=== PATIENT | female | born 1955 ===

== ENCOUNTER 2021-12-28 10:33 | Observation (INO) ==
[2021-12-22] MEDS: HYDROmorphone 1 MG/1 ML SYRINGE IV PRN (16:58)
[~2021-12-28 10:33] MED LIST: Buffered Lidocaine 1% SYRIN 1 ml INTRADERM ONE; Famotidine IV 10 MG/ML 2 ml VIAL (20 mg) IV ONE; Lactated Ringers 1000 ml BAG 1,000 ML IV SCH
[2021-12-28] MEDS ORDERED: Famotidine IV 10 MG/ML 2 ml VIAL (20 mg) ONE (11:16)
[2021-12-28] MEDS ORDERED: ceFAZolin 2 GM in NS PREMIX 2 GM/100 ML BAG IVPB ONE (11:16)
[2021-12-28] MEDS ORDERED: Lidocaine 2% PF 5 ML VIAL ONE ×2 (12:35→13:09)
[2021-12-28] MEDS ORDERED: fentaNYL 100 mcg/2 ml 50 MCG/ML VIAL ONE (12:35)
[2021-12-28] MEDS ORDERED: Midazolam 10 mg/10 ml VIAL 1 mg/ml 10 ml VIAL (10 mg) ONE (12:35)
[2021-12-28] MEDS ORDERED: ROPIVACAINE 5 MG/ML 30 ML BTL (0.5%) ONE (12:37)
[2021-12-28] MEDS ORDERED: Rocuronium 50 mg VIAL 10 mg/ml 5 ml VIAL (50 mg) ONE (13:07)
[2021-12-28] MEDS ORDERED: fentaNYL 250 mcg/5 ml 50 MCG/ML 5 ml VIAL (250 MCG) ONE ×2 (13:08→16:50)
[2021-12-28] MEDS ORDERED: ceFAZolin VIAL VIAL ONE (13:34)
[2021-12-28] MEDS ORDERED: ceFAZolin 1 GM ADVAN 1 GM ADDV.VIAL IVPB ONE (13:35)
[2021-12-28] MEDS ORDERED: Dexamethasone IV 4 MG/ML VIAL 1 ml VIAL ONE (13:39)
[2021-12-28] MEDS ORDERED: Ondansetron 4 mg VIAL 2 MG/ML 2 ml VIAL ONE (13:39)
[2021-12-28] MEDS ORDERED: Ropivacaine 5 MG/ML 20 ML VIAL 0.5% (100 MG) ONE (13:40)
[2021-12-28] MEDS ORDERED: Naloxone 0.4 mg VIAL 0.4 mg/ml 1 ml VIAL IV PRN (13:50)
[2021-12-28] MEDS ORDERED: Ondansetron 4 mg VIAL 2 MG/ML 2 ml VIAL IV PRN ×2 (13:50→15:09)
[2021-12-28] MEDS ORDERED: Propofol 10 MG/ML 20 ML BTL ONE ×2 (14:16→17:00)
[2021-12-28] MEDS ORDERED: HYDROmorphone 0.5 MG/0.5 ML SYRINGE ONE (14:21)
[2021-12-28] MEDS ORDERED: Magnesium Hydroxide LIQ 30 ML UDC PO PRN (15:09)
[2021-12-28] MEDS ORDERED: Ondansetron ODT 4 mg TAB 4 MG TAB PO PRN (15:09)
[2021-12-28] MEDS ORDERED: Lactulose 30 ml UDC PO PRN (15:09)
[2021-12-28] MEDS ORDERED: diPHENhydraMINE 25 mg TAB PO PRN (15:09)
[2021-12-28] MEDS ORDERED: diPHENhydraMINE IV 50 MG/ML 1 ml VIAL (BENADRYL) IV PRN (15:09)
[2021-12-28] MEDS ORDERED: HYDROmorphone 0.5 MG/0.5 ML SYRINGE IV SLOW PU PRN (15:20)
[2021-12-28] MEDS ORDERED: Sugammadex 500 MG/5 ML 5 ml VIAL IV PUSH ONE (15:24)
[2021-12-28] MEDS ORDERED: ceFAZolin 1 GM ADVAN 1 GM in NS 0.9% 50 ML 50 ML IVPB SCH (16:00)
[2021-12-28] MEDS ORDERED: HYDROmorphone 1 MG/1 ML SYRINGE IV SLOW PU PRN (16:41)
[2021-12-28] MEDS ORDERED: HYDROmorphone 1 MG/1 ML SYRINGE ONE (16:45)
[2021-12-28] MEDS: HYDROmorphone 1 MG/1 ML SYRINGE IV PRN (16:48)
[2021-12-28] MEDS: fentaNYL 100 mcg/2 ml 50 MCG/ML VIAL IV PRN ×4 (17:04→17:25)
[2021-12-28] MEDS ORDERED: Meperidine 50 mg/ml SYRINGE 1 ml ONE (17:23)
[2021-12-28] MEDS ORDERED: Meperidine 50 mg/ml SYRINGE 1 ml IV ONE (17:24)
[2021-12-28] MEDS: Lactated Ringers 1000 ml BAG 1,000 ML IV SCH (19:21)
[2021-12-28] MEDS: Tacrolimus 0.03% OINT(NF) 30 GM TUBE TOPICAL SCH (22:17)
[2021-12-28] MEDS: ceFAZolin 1 GM in Dextrose 1 GM/50 ML BAG IVPB SCH (22:23)
[2021-12-28] MEDS: Magnesium Hydroxide LIQ 30 ML UDC PO SCH (22:23)
[2021-12-29] MEDS: ceFAZolin 1 GM in Dextrose 1 GM/50 ML BAG IVPB SCH ×2 (06:22→13:56)
[2021-12-29 06:23] LABS: Hematocrit 29 % (35-47); Hemoglobin 9.9 g/dL (12.0-16.0); Mean Platelet Volume 10.8 fL (7.4-10.4); Platelet Count 145 10^3/uL (150-450)
[2021-12-29] MEDS: Lactated Ringers 1000 ml BAG 1,000 ML IV SCH (06:23)
[2021-12-29 06:52] LABS: Calcium 8.8 mg/dL (8.6-10.3); Potassium 4.4 mmol/L (3.5-5.0); eGFR CKD-EPI 52.6 (>60)
[2021-12-29] MEDS: Magnesium Hydroxide LIQ 30 ML UDC PO SCH (08:56)
[2021-12-29] MEDS: Tacrolimus 0.03% OINT(NF) 30 GM TUBE TOPICAL SCH (08:59)
[2021-12-29] MEDS ORDERED: Vitamin THERAPEUTIC TAB PO SCH (09:00)
[2021-12-29 11:28] VITALS: BP 134/83
== END 2021-12-29 15:10 | disposition home or self-care (01) ==
LOC: SSU 10:33 → OR 10:33 → EDSTATUS 15:30
PROVIDERS: ADMIT Orthopaedic Surgery Adult Reconstructive Orthopaedic Surgery; ATTEND Orthopaedic Surgery Adult Reconstructive Orthopaedic Surgery